=== PATIENT | male | born 1975 | race Caucasian/White ===

== ENCOUNTER → 2018-03-09 | Outpatient (CLI) | payer OTHER, MEDICAID | END | disposition home or self-care (01) | LOC: US 10:00 | PROC: B54DZZZ Ultrasonography of Bilateral Lower Extremity Veins (ICD-10-PCS; principal; 2018-03-09) | DX: Z86.718 Personal history of other venous thrombosis and embolism (principal); Z79.01 Long term (current) use of anticoagulants | CPT/HCPCS: Q0092 ==

== ENCOUNTER 2020-05-28 21:04 | Emergency (ER) | payer OTHER, MEDICAID ==
[~2020-05-28] VITALS: Ht 167.6 cm; Wt 81.6 kg
[2020-05-28 21:13] VITALS: Ht 167.6 cm; Wt 81.6 kg
[2020-05-29 00:27] LABS: PLATELET COUNT 378 x10^3mcL (152-348)
[2020-05-29 00:34] LABS: CALCIUM 9.5 mg/dL (8.5-10.1); CARBON DIOXIDE 31.1 mmol/L (21-32); CHLORIDE SERUM 102 mmol/L (98-107); GFR1 > 60 mL/min; GLUCOSE SERUM 89 mg/dL (74-106); POTASSIUM SERUM 4.1 mmol/L (3.5-5.1); SODIUM SERUM 138 mmol/L (136-145)
[2020-05-29 00:35] LABS: BASOPHIL % 2.1 % (0.2-1.5); RED CELL DISTRIBUTION WIDTH 17.3 % (12.1-16.2)
[2020-05-29 00:38] LABS: ALKALINE PHOSPHATASE 194 U/L (46-116); ALT/SGPT 41 U/L (16-63); AST/SGOT 27 U/L (15-37); BILIRUBIN TOTAL 0.2 mg/dL (0.20-1.00); LIPASE 161 IU/L (73-393); TOTAL PROTEIN, SERUM 7.1 g/dL (6.4-8.2)
[2020-05-29 00:58] LABS: ALBUMIN 2.8 g/dL (3.4-5.0)
[2020-05-29 03:37] VITALS: BP 105/76
== END 2020-05-29 03:33 | disposition home or self-care (01) ==
LOC: ED 21:04
DX: R07.89 Other chest pain (principal); Z20.828 Contact with and (suspected) exposure to other viral communicable diseases
CPT/HCPCS: U0003

== ENCOUNTER 2020-06-28 06:08 | Day surgery (SDC) | payer OTHER, MEDICAID ==
[~2020-06-28] VITALS: Ht 170.2 cm; Wt 85.7 kg
[2020-06-28 06:38] VITALS: BP 97/59
[2020-06-28 10:46] VITALS: BP 110/50
== END 2020-06-28 10:25 | disposition home or self-care (01) ==
LOC: OR 06:08
PROVIDERS: ATTEND Internal Medicine
DX: K21.00 Gastro-esophageal reflux disease with esophagitis, without bleeding (principal); K29.50 Unspecified chronic gastritis without bleeding; K22.10 Ulcer of esophagus without bleeding; Q90.9 Down syndrome, unspecified; R07.9 Chest pain, unspecified; Z87.440 Personal history of urinary (tract) infections
CPT/HCPCS: 43235; J1200; J1610; J2250; J2310; J3010; J3490